=== PATIENT | female | born 1965 | race Two or more races ===

== ENCOUNTER 2019-05-29 09:43 | Outpatient (CLI) | payer OTHER ==
[~2019-05-29 09:43] MED LIST: SYNTHROID125 MCG
== END 2019-05-29 09:45 | disposition home or self-care (01) ==
LOC: SONOGRAMA 09:43
DX: E04.2 Nontoxic multinodular goiter (principal)

== ENCOUNTER 2022-07-13 06:55 | Day surgery (SDC) | payer OTHER ==
[~2022-07-13 06:55] MED LIST changes: +SYNTHROID150 MCG PO
[2022-07-13] MEDS ORDERED: DICLOFENAC POTA50 MG PO (12:00)
== END 2022-07-13 17:15 | disposition home or self-care (01) ==
LOC: CIR.AMB 06:55
PROVIDERS: ATTEND Obstetrics & Gynecology
DX: N84.0 Polyp of corpus uteri (principal); N95.0 Postmenopausal bleeding; R93.5 Abnormal findings on diagnostic imaging of other abdominal regions, including retroperitoneum; Z20.822 Contact with and (suspected) exposure to COVID-19; E03.9 Hypothyroidism, unspecified